=== PATIENT | male | born 1975 | race Caucasian/White ===

== ENCOUNTER → 2016-06-01 | Day surgery (SDC) | payer OTHER ==
[~2016-06-01] MED LIST: AMOXPOW PO; BUPIVACAINE/EPINEPHRINE 0.25% 50 ML VIAL ONE; KETOROLAC TROMETHAMINE 30 MG/ML (IVP) VIAL IV PUSH ONE; LACTATED RINGER'S 1000 ML INJ 1,000 ML ONE; LORTA10 PO; MIDAZOLAM HCL 2 MG/2 ML VIAL ONE; NEOMYCIN/POLYMYXIN/BACITRACIN OINT 15 GM TUBE ONE; ONDANSETRON HCL 4 MG/2 ML VIAL IV PUSH ONE; PROPOFOL 200 MG/20 ML AMP IV ONE; ceFAZolin 2 GM PREMIX 50 ML ONE
--- NOTE | 2016-06-01 09:34 | TN ---
cc: MURIEL MORAN M.D. DATE OF SURGERY June 01, 2012 PREOPERATIVE DIAGNOSES 1. Large chronically incarcerated umbilical hernia. 2. Obesity. POSTOPERATIVE DIAGNOSES 1. Large chronically incarcerated umbilical hernia. 2. Obesity. PROCEDURE PERFORMED Open umbilical hernia repair with mesh. SURGEON Muriel Moran MD NEWS VIDEO EDITOR TRAE Vizcaino ANESTHESIA General LMA. COMPLICATIONS None. INDICATIONS FOR PROCEDURE Mr. Mart is a pleasant 41-year-old obese gentleman who had a very large umbilical hernia that was chronically incarcerated with fat. He was seen and evaluated in the office. The hernia was probably 8 cm in diameter. He was offered elective repair with mesh. The risks and benefits of repair were discussed with him including the fact that his obesity and large hernia put him at high risk for recurrence. He expressed understanding and was willing to proceed. DETAILS The patient was identified, brought to the operating room and placed supine on the operating table. After adequate general anesthesia was received via LMA, the anterior abdomen was prepped and draped in standard surgical fashion. 0.25% Marcaine was injected into the skin and subcutaneous tissue in the infraumbilical area. An infraumbilical incision was made in a semi-lunar line. The subcutaneous was dissected with blunt dissection. Medially we encountered a hernia sac that was easily dissected from surrounding subcutaneous fat with blunt dissection. Using gentle manipulation, the fat and the hernia sac were able to be reduced back into the abdominal cavity. The fascial defect was several cm in diameter. The fascia was then cleaned off circumferentially around the defect. Attention was now directed to repair. Repair was accomplished using a two-layer technique. First the fascia was sewn back together using a 0 Prolene interrupted x 5. Once we did this, an on-lay mesh was placed. The mesh was secured in the four corners using a 2-0 Prolene suture with generous mesh overlap beyond the defect itself. The mesh was then secured additionally on the superior, inferior and medial lateral borders. With this, the mesh was circumferentially secured all the way around the defect with generous overlap in all directions. The wound was copiously irrigated with normal saline solution. The wound was then injected with additional local anesthetic. The umbilical stalk was intact down to the abdominal wall using a 3-0 Vicryl. The subcutaneous tissue was closed with 3-0 Vicryl and the skin was closed with a 4-0 Vicryl. The patient tolerated the procedure well, was awakened and brought to Recovery in stable condition. The [employer] hair assistant was medically necessary for the procedure due to her surgical expertise and knowledge of my surgical technique. She was present and scrubbed for the entire procedure. MD FAITH Reeves/ROXIE /9:15 AM /9:18 AM [id number]
== END | disposition home or self-care (01) ==
LOC: ESDC 06:24
PROVIDERS: ATTEND Surgery Trauma Surgery
DX: K42.0 Umbilical hernia with obstruction, without gangrene (principal); E66.9 Obesity, unspecified
CPT/HCPCS: 00750; 49585; C1781; J0690; J1885; J2250; J2405; J3010; J7120